=== PATIENT | male | born 1955 ===

== ENCOUNTER 2020-08-22 08:45 | Inpatient (IN) | payer MEDICARE, OTHER ==
[~2020-08-22] VITALS: Ht 182.9 cm; Wt 104.1 kg
[2020-08-22] VITALS (173 sets, daily range): BP systolic 110–148; BP diastolic 74–101; PULSE 60–77; TEMP 98.4–98.8; O2SAT 90–97
--- NOTE | 2020-08-22 07:55 | NUR ---
RECEIVED REPORT FROM AMELIA HOPKINS RN AT [facility]. AWAITING ARRIVAL OF PT TO ICU 5.
--- NOTE | 2020-08-22 08:40 | NUR ---
PT ARRIVES WITH EMS VIA STRETCHER ON RA. PER EMS, NO CHANGES SINCE REPORT WAS GIVEN TO RN FROM OTHER FACILITY. VSS. PT ABLE TO STAND AND TAKE OFF ADDITIONAL CLOTHING AND USE URINAL AT BEDSIDE. DENIES ANY DIZZIES, CP/PRESSURE AT THIS TIME. PLACED ON BEDSIDE CONTINUOUS MONITOR. VSS. CALL LIGHT WITHIN REACH. BROUGHT TO BEDSIDE.
--- NOTE | 2020-08-22 09:00 | NUR ---
DR BARDALES AWARE PT HAS ARRIVED.
[2020-08-22] MEDS ORDERED: SYNTHROID0.2 MG/TAB PO (09:53)
[2020-08-22] MEDS ORDERED: SYNTHROID 0.0.025 MG PO (09:53)
[2020-08-22] MEDS ORDERED: VERELAN120 MG PO (09:54)
[2020-08-22 10:59] LABS: PARTIAL THROMBOPLASTIN TIME 28.9 SECONDS (26.0-37.0)
--- NOTE | 2020-08-22 11:03 | NUR ---
DR SANCHES AT BEDSIDE FOR ASSESSMENT.
[2020-08-22 11:18] LABS: BASO # 0.1 (0.0-0.2); BASO % 0.8 % (0.0-2.0); EOS # 0.1 (0.0-0.7); EOS % 1.7 % (0-4.0); GRAN # 5.3 (1.4-6.5); GRAN % 72.6 % (42.2-75.2); HEMATOCRIT 47.2 % (42.0-52.0); HEMOGLOBIN 15.4 g/dl (13.5-18.0); LYMPH # 1.1 (1.2-3.4); LYMPH % 15.6 % (20.0-51.0); MEAN CELL VOLUME 95 fl (80.0-100.0); MEAN CORPUSCULAR HEMOGLOBIN 31 pg (27.0-31.0); MEAN CORPUSCULAR HGB CONC 33 g/dl (33.0-37.0); MEAN PLATELET VOLUME 9.4 fl (7.4-10.4); MONO # 0.7 (0.1-0.6); PLATELET COUNT 214 K/mm3 (130-400); RED BLOOD COUNT 4.98 M/mm3 (4.20-5.60); REDCELL DISTRIBUTION WIDTH-CV 13.5 % (11.5-14.5)
[2020-08-22 11:26] LABS: ALBUMIN 3.7 gm/dL (3.5-5.0); BILIRUBIN,TOTAL 0.3 mg/dL (0.0-1.0); CALCIUM 9.3 mg/dL (8.4-10.2); CHOLESTEROL RISK RATIO 4.2; CREATININE, serum 0.96 (0.66-1.25); MAGNESIUM 2.4 mg/dL (1.6-2.3); POTASSIUM 4.2 mmol/L (3.4-5.0); TOTAL PROTEIN 6.5 gm/dL (6.4-8.2)
[2020-08-22 11:45] LABS: TROPONIN-I 0.483 ng/mL (0.000-0.035)
--- NOTE | 2020-08-22 14:15 | NUR ---
DR SANCHES AT BEDSIDE DISCUSSING POC WITH ABOUT POSSIBEL TRANSFER TO [facility].
--- NOTE | 2020-08-22 14:30 | NUR ---
PT TO [facility] AT 1240. RECEIVED REPORT FROM SUZE AMBROCIO IN [facility] AT 1424.PT BACK TO ROOM AT 1430. PLACED ON BEDSIDE CONTINUOUS MONITOR. PER SUZE JORDAN RESTART HEPARIN GTT PER PREVIOUS RATE. PT DENIES ANY CP/PRESSURE AT THIS TIME. VSS. CALL LIGHT WITHIN REACH. AT BEDSIDE.
--- NOTE | 2020-08-22 15:10 | NUR ---
DR JASMINE AT BEDSIDE DISCUSSING PROCEDURE WITH AND PT.
--- NOTE | 2020-08-22 16:30 | NUR ---
PER SPORTS ANALYST, PT ACCEPTED TO [facility]. PT TO TRANSFER TO [facility]. AND PT MADE AWARE.
--- NOTE | 2020-08-22 16:53 | NUR ---
REPORT CALLED TO SUZE WATT AT [facility]. PT TO TRANSFER VIA EMS. AWAITING FOR EMS. PT AND AWARE OF POC. PT WILL LEAVE WITH 9ML LEFT IN TR BAND.
--- NOTE | 2020-08-22 17:28 | NUR ---
REPORT GIVEN TO LILI, MEASURING MACHINE OPERATOR WITH [facility]. CARE TRASNFERRED AT THIS TIME. TAKES ALL PT BELONGINGS WITH HER.
== END 2020-08-22 17:37 | disposition short-term general hospital (02) | DRG 247 ==
LOC: ICU 08:45
PROVIDERS: ADMIT Internal Medicine
PROC: 027034Z Dilation of Coronary Artery, One Artery with Drug-eluting Intraluminal Device, Percutaneous Approach (ICD-10-PCS; principal; 2020-08-22)
PROC: 4A023N7 Measurement of Cardiac Sampling and Pressure, Left Heart, Percutaneous Approach (ICD-10-PCS; 2020-08-22)
PROC: B2111ZZ Fluoroscopy of Multiple Coronary Arteries using Low Osmolar Contrast (ICD-10-PCS; 2020-08-22)
DX: I21.4 Non-ST elevation (NSTEMI) myocardial infarction (principal); E03.9 Hypothyroidism, unspecified; E66.9 Obesity, unspecified; E78.5 Hyperlipidemia, unspecified; G47.33 Obstructive sleep apnea (adult) (pediatric); Z68.31 Body mass index [BMI] 31.0-31.9, adult; Z86.73 Personal history of transient ischemic attack (TIA), and cerebral infarction without residual deficits
CPT/HCPCS: 99223-AI; C1725; C1769; C1874; C1887; J1644; J2250; J3010; Q9967